=== PATIENT | female | born 1975 | race Caucasian/White ===

== ENCOUNTER 2018-04-23 12:26 | Emergency (ER) | payer BC ==
[2018-04-23] MEDS ORDERED: Tetan/Diph/Pertus SYR(Tdap)* 0.5 ML SYR(BOOSTRIX) use SYR IM ONE (12:36)
--- NOTE | 2018-04-23 13:16 | ED ---
Laceration/Wound HPI - HPI Summary HPI Summary: This patient is a 42 year old F presenting to [facility] accompanied by family with a chief complaint of laceration to the side of her L hand that occurred at approximately 1200 today. The patient rates the pain 3/10 in severity. Symptoms aggravated by nothing. Symptoms alleviated by nothing. Patient denies numbness and weakness. Patient states she cut her hand on a piece of metal in her house. - History of Current Complaint Stated Complaint: CUT LEFT SIDE OF HAND Time Seen by Provider: 04/23/18 13:08 Hx Obtained From: Patient Mechanism of Injury: Sharp/Blunt Trauma Onset/Duration: Sudden Onset, Lasting Hours, Still Present Aggravating: Nothing Alleviating: Nothing Onset Severity: Mild Current Severity: Mild Pain Intensity: 3 Pain Scale Used: 0-10 Numeric - Allergy/Home Medications Allergies/Adverse Reactions: Allergies Allergy/AdvReac Type Severity Reaction Status Date / Time No Known Allergies Allergy Verified 06/06/15 16:46 PMH/Surg Hx/FS Hx/Imm Hx Previously Healthy: Yes Endocrine/Hematology History: Denies: Hx Diabetes Cardiovascular History: Denies: Hx Hypertension Infectious Disease History: No Infectious Disease History: Denies: Traveled Outside the [place] in Last 30 Days Review of Systems Positive: Other - Positive laceration to the side of her L hand Negative: Weakness, Numbness All Other Systems Reviewed And Are Negative: Yes Physical Exam - Summary Physical Exam Summary: Appearance: Well appearing, no pain distress Skin: warm, dry, reflects adequate perfusion. Laceration to the ulnar aspect of the hand. Curvy linear, 3.5 cm in length. Muscle exposed. Head/face: normal Eyes: EOMI, ATUL ENT: mucous membranes moist Neck: supple, non-tender Respiratory: CTA, breath sounds present Cardiovascular: RRR, pulses symmetrical Abdomen: non-tender, soft Bowel Sounds: present Musculoskeletal: normal, strength/ROM intact Neuro: normal, sensory motor intact, A&Ox3 Triage Information Reviewed: Yes Vital Signs On Initial Exam: Initial Vitals Temp Pulse Resp BP Pulse Ox 97.4 F 67 18 129/74 100 04/23/18 12:33 04/23/18 12:33 04/23/18 12:33 04/23/18 12:33 04/23/18 12:33 Vital Signs Reviewed: Yes Procedures - Laceration/Wound Repair 1 Location: upper extremity Description: Linear Anesthesia: 1.0%, Lido - 3 CCs Length, Depth and Shape: 3.5 cm. Curvy linear Laceration/Wound Explored: clean Closure: Multilayer Suture Type: Prolene - Running suture 4.0. 9 Sutures., Vicryl - 3 in the subcutaneous tissues Number of Sutures: 12 - 3 Vicryl in the subcutaneous. 9 Prolene stitches on the surface of the skin. Layer Closure?: Yes Sterile Dressing Applied?: Yes - Dressed with 4x4 gauze and coband Diagnostics - Vital Signs Vital Signs Temp Pulse Resp BP Pulse Ox 04/23/18 12:33 97.4 F 67 18 129/74 100 - Laboratory Lab Statement: Any lab studies that have been ordered have been reviewed, and results considered in the medical decision making process. Laceration Repair Course/Dx - Course Course Of Treatment: Nurse's notes reviewed. Patient's tetanus was updated and her laceration was repaired here. Lactic cleaned extensively and was not grossly contaminated. No antibiotics. Sutures out 7-10 days. - Clinical Impression Provider Diagnoses: Laceration of left hand Discharge - Sign-Out/Discharge Documenting (check all that apply): Patient Departure - Discharge home Patient Received Moderate/Deep Sedation with Procedure: No - Discharge Plan Condition: Improved Disposition: HOME Patient Education Materials: Care For Your Stitches (ED) Referrals: Chavez Camacho MD [Primary Care Provider] - Additional Instructions: Sutures out in 7-10 days. Bacitracin ointment a couple times a day. Keep it clean and dry. Return for any concerns for infection. - Billing Disposition and Condition Condition: IMPROVED Disposition: Home - Attestation Statements Document Initiated by Scribe: Yes Documenting Scribe: Dee Dee Galloway Provider For Whom Zheng is Documenting (Include Credential): Dr. Ahsan Nieves MD Scribe Attestation: I, Dee Dee Galloway, scribed for Dr. Ahsan Nieves MD on 04/23/18 at 1604. Scribe Documentation Reviewed: Yes Provider Attestation: The documentation as recorded by the sureshibeDee Dee accurately reflects the service I personally performed and the decisions made by me, Dr. Ahsan Nieves MD Status of Scribe Document: Viewed
[2018-04-23 14:01] VITALS: BP 115/76
== END 2018-04-23 14:00 | disposition home or self-care (01) ==
LOC: ED 12:26
DX: S61.412A Laceration without foreign body of left hand, initial encounter (principal); W26.8XXA Contact with other sharp object(s), not elsewhere classified, initial encounter; Y92.009 Unspecified place in unspecified non-institutional (private) residence as the place of occurrence of the external cause; Z23 Encounter for immunization
CPT/HCPCS: 12002; 90471; 90715; 99282